=== PATIENT | male | born 1960 ===

== ENCOUNTER 2023-10-03 08:10 | Outpatient (CLI) | payer MEDICARE, SELFPAY ==
--- NOTE | ~2023-10-03 | MR_ITS ---
MRI of the right knee Clinical history: Pain Technique: Coronal proton density and proton density-weighted images, sagittal proton-density and T2 fat-sat images, and axial proton-density fat-saturated images were acquired. Findings: Anterior and posterior cruciate ligaments are intact. Medial collateral ligament and the la teral collateral ligament complex are intact. Popliteus tendon is intact. Medial and lateral menisci are intact, without evidence of tear. 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 Remaining articular cart ilage throughout the knee is well preserved. Bone marrow signals are unremarkable. Extensor mechanism is intact. No significant joint effusion or Raza's cyst. There is apparent focal popliteal artery aneurysm posterior to the measuring 2 cm in diameter. 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 Moderate chondromalacia the femoral trochlea. No ligamentous injury or meniscal tear evident. Reviewed, dictated and finalized at [facility]. 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 Moderate chondromalacia the femoral trochlea. No ligamentous injury or meniscal tear evident.
== END 2023-10-03 08:11 ==
LOC: GOSHIMG 08:10
PROVIDERS: PCP Orthopaedic Surgery; Visit Provider Orthopaedic Surgery
DX: M94.261 Chondromalacia, right knee (principal)
CPT/HCPCS: 73721